=== PATIENT | male | born 1995 | race Caucasian/White ===

== ENCOUNTER 2017-03-23 08:21 | Observation (INO) ==
[2017-03-23] MEDS ORDERED: NS 500 ML IV ONE ×3 (09:03→14:00)
[2017-03-23] MEDS ORDERED: MAGNESIUM SULFATE 2 GM/S.W.I. 2 GM/50 ML IVPB IV ONE ×2 (09:03→14:00)
[2017-03-23] MEDS ORDERED: ZOFRAN IV PRN (09:05)
[2017-03-23] MEDS ORDERED: REGLAN IV PRN (09:05)
[2017-03-23] MEDS ORDERED: CYANOCOBALAMIN IM ONE ×2 (09:06→13:30)
[2017-03-23 12:35] LABS: MANUAL DIFF NEEDED? NO
[2017-03-23 12:39] LABS: BASO% 0.3 % (0.0-0.8); EOS# 0.09 X1000 (0.0-0.7); EOS% 1.6 % (0.0-10.0); HEMATOCRIT 42.3 % (42.0-52.0); HEMOGLOBIN 14.6 g/dL (14.0-18.0); MCH 29.3 PG (27-31); MCHC 34.5 g/dL (33-37); MCV 84.9 FL (81-99); MONO% 10.4 % (1.7-9.3); MPV 10.5 FL (7.4-10.4); NEUT% 49.7 % (42.2-75.2); PLT 266 X1000 (130-400); RBC 4.98 XMIL (4.7-6.1)
[2017-03-23] MEDS: PROTONIX IV SCH ×2 (13:20→22:32)
[2017-03-23] MEDS: SODIUM CHLORIDE 0.9% INJ SCH ×2 (13:20→22:33)
[2017-03-23 13:21] LABS: AGAP 11; ALBUMIN 4.5 g/dL (3.5-5.0); ALKALINE PHOSPHATASE 54 U/L (32-122); BUN 13 mg/dL (8-22); CALCIUM 9.8 mg/dL (8.8-10.2); CHLORIDE 100 mmol/L (98-107); COSMO 271; GOT 25 U/L (10-34); GPT 40 U/L (10-44); MAGNESIUM 1.9 mg/dL (1.5-2.7); POTASSIUM 4.1 mmol/L (3.5-5.1); SODIUM 136 mmol/L (136-145); TCO2 26 mmol/L (25-35); TOTAL PROTEIN 7.5 g/dL (6.3-8.3)
[2017-03-23] MEDS: NS 1,000 ML IV SCH ×2 (13:21→22:33)
--- NOTE | 2017-03-23 17:55 | HISTORY AND PHYSICAL ---
PRIMARY CARE PHYSICIAN: Ethan Watters MD. CHIEF COMPLAINT: Dehydration, poor p.o. intake, POT syndrome. HISTORY OF PRESENT ILLNESS: Mr. Ferrell is a 22-year-old, male with known POT syndrome and orthostatic hypotension. Currently under my care for mitochondrial resuscitation status post use of Xifaxan to increase nutritional assimilation. The patient called our office, noted to be acutely dehydrated. Has had IV fluids at Dr. Stuart's office, but we decided to admit overnight for IV fluid resuscitation and further evaluation of this chronic debilitating syndrome. REVIEW OF SYSTEMS: Twelve point review of systems pertinent for items mentioned in HPI. Patient was profusely nauseous with emesis, poor p.o. intake and lethargic. Describes no chest pain, no cough, no dysuria, no diarrhea. No blood in urine or stool. MEDICATIONS: The patient is under a mitochondrial resuscitation protocol, status post Xifaxan. Please see the updated list for those medications. The patient also takes Coreg 3.125 mg p.o. daily. Restoril 7.5 mg p.o. nightly. Patient using Phenergan and Reglan p.r.n. PHYSICAL EXAMINATION: VITAL SIGNS: Temperature 98.4, pulse 79, respirations 20, blood pressure 137/56, O2 saturation 99% on room air. Patient's current weight 191.16 pounds. GENERAL: On physical exam, a disorganized, male, mild to moderate distress with overt pallor. HEENT: Shows pupils equal, round, reactive to light and accommodation. Extraocular movements are intact. OP is clear, erythematous. Nares are patent. No drainage noted. NECK: Supple. No thyromegaly. No JVD noted. CHEST: Clear to auscultation anteriorly with no rhonchi, no wheeze, no heave noted. CV: Regular rate. No murmurs, gallops or rubs noted. ABDOMEN: Soft, nontender, nondistended. Bowel sounds are scant. EXTREMITIES: No cyanosis, no clubbing. No edema. SKIN: Patient's skin can be described as pasty with poor color. Poor turgor. NEUROLOGICAL: Cranial nerves 2-12 are grossly intact. LABS: The patient's WBC is 5.79 with an hemoglobin and hematocrit of 14 and 42 respectively. MCV 84.9, platelet count of 266, neutrophils 49.7. Chemistry shows sodium 136, anion gap of 11 with a BUN of 13, creatinine 0.8. AST, ALT within normal limits. 25 to 40. Magnesium 1.9. Alkaline phosphatase of 54, albumin 4.5, vitamin B12 of 814. Reports patient had extremity venous study with results pending. PROBLEM LIST: 1. Postural orthostatic tachycardia syndrome. 2. Orthostatic hypertension. 3. Dehydration, mild to moderate. 4. Intractable nausea, vomiting. 5. Poor exercise tolerance. 6. Chronic cannabis use with cannabis dependence. PLAN: The patient will be admitted for IV fluid resuscitation along with the increase in magnesium and high dose vitamin supplementation in an effort to remediate his current situation of postural orthostatic tachycardia syndrome with acute exacerbation. The patient will have some labs drawn to further delineate the root cause of this condition and we will follow regarding possible alternative approaches during this admission. The patient will have a lower extremity venous Doppler to evaluate the lower extremity and make sure there are no issues. follow daily. Likely a 2 day stay. Any questions or concerns will be directed to myself. cc: Ethan Watters MD
[2017-03-23] MEDS ORDERED: RESTORIL PO SCH (21:00)
[2017-03-23] MEDS ORDERED: COREG PO SCH (21:00)
[2017-03-24 06:01] LABS: MANUAL DIFF NEEDED? NO
[2017-03-24 06:05] LABS: BASO% 0.5 % (0.0-0.8); EOS# 0.16 X1000 (0.0-0.7); EOS% 2.6 % (0.0-10.0); HEMOGLOBIN 13.5 g/dL (14.0-18.0); IMM GRAN# 0.01 X1000 (0.0-0.04); IMM GRAN% 0.2 % (0.0-0.5); LYMPH# 2.43 X1000 (1.2-3.4); LYMPH% 39.6 % (20.5-51.1); MCHC 33.8 g/dL (33-37); MONO# 0.77 X1000 (0.11-0.59); MONO% 12.5 % (1.7-9.3); MPV 11.1 FL (7.4-10.4); NEUT% 44.6 % (42.2-75.2); PLT 239 X1000 (130-400); RBC 4.65 XMIL (4.7-6.1)
[2017-03-24 06:46] LABS: AGAP 10; ALKALINE PHOSPHATASE 48 U/L (32-122); AMYLASE 59 U/L (20-200); BUN 12 mg/dL (8-22); CALCIUM 9.2 mg/dL (8.8-10.2); CHLORIDE 105 mmol/L (98-107); COSMO 277; GOT 21 U/L (10-34); GPT 31 U/L (10-44); LIPASE 24 U/L (13-60); POTASSIUM 4.3 mmol/L (3.5-5.1); SODIUM 139 mmol/L (136-145); TCO2 25 mmol/L (25-35); TOTAL PROTEIN 6.6 g/dL (6.3-8.3)
--- NOTE | 2017-03-24 07:10 | Extremity Venous Study ---
PROCEDURE NAME: Venous U/S Bilateral Legs - 03/23/2017 BILATERAL LOWER EXTREMITY VENOUS DOPPLER ULTRASOUND: FINDINGS: RIGHT: There is good flow and compressibility in the veins of the right lower extremity. No thrombus. Normal augmentation. LEFT: There is good flow and compressibility in the veins of the left lower extremity. No thrombus. Normal augmentation. IMPRESSION: No evidence of deep venous thrombosis within either lower extremity.
--- NOTE | 2017-03-24 07:27 | PROGRESS NOTE ---
DATE: 03/24/2017 SUBJECTIVE: Overnight, the patient responded well, did take the sleep aid with excellent effect approximately 2200. He states that he is feeling much better status post IV fluid resuscitation. OBJECTIVE: Vital signs showed temperature of 97.7 degrees, pulse of 55; down from over 100. Blood pressure 142/68. O2 saturation 100% on room air. PHYSICAL EXAMINATION: Improved color. Improved overall general appearance. CV is regular rate. No murmurs, gallops, or rubs. Skin: Warm with improved perfusion and turgor. Lower extremities: No cyanosis, clubbing, or edema noted. intact. ASSESSMENT AND PLAN: This is a 22-year-old with 1. Orthostatic hypotension, resolving, with the root cause of the etiology unknown. 2. Postural orthostatic tachycardia syndrome. 3. Hypomagnesemia. 4. Intractable nausea, vomiting. 5. Failure to thrive secondary to #1. 6. Extreme fatigue. The patient is responding well to the treatment. We will continue today with further evaluation of some of the labs along with an IV of vitamin C at high dose with patient's continuing medication regimen. Restoril will be made available and nausea medicine available as well. The patient has been held from any cannabinoids secondary to the question of cyclic vomiting syndrome. cc: Ethan Watters MD
[2017-03-24] MEDS: SODIUM CHLORIDE 0.9% INJ SCH (10:08)
[2017-03-24] MEDS: PROTONIX IV SCH ×2 (10:08→20:29)
[2017-03-24] MEDS ORDERED: NS IV ONE (10:30)
[2017-03-24] MEDS ORDERED: VITAMIN C IV ONE (10:30)
[2017-03-24] MEDS ORDERED: RESTORIL PO SCH (12:51)
[2017-03-25 03:46] VITALS: BP 117/47
[2017-03-25 06:19] LABS: MANUAL DIFF NEEDED? NO
[2017-03-25 06:20] LABS: BASO% 0.3 % (0.0-0.8); EOS# 0.21 X1000 (0.0-0.7); EOS% 2.3 % (0.0-10.0); HEMATOCRIT 40.8 % (42.0-52.0); IMM GRAN# 0.01 X1000 (0.0-0.04); IMM GRAN% 0.1 % (0.0-0.5); LYMPH% 33.2 % (20.5-51.1); MCH 29.2 PG (27-31); MCHC 34.3 g/dL (33-37); MPV 11.3 FL (7.4-10.4); NEUT% 54.1 % (42.2-75.2); PLT 256 X1000 (130-400)
[2017-03-25 06:46] LABS: AGAP 10; ALBUMIN 3.9 g/dL (3.5-5.0); ALKALINE PHOSPHATASE 50 U/L (32-122); BUN 9 mg/dL (8-22); CALCIUM 9.5 mg/dL (8.8-10.2); CHLORIDE 106 mmol/L (98-107); COSMO 281; GOT 21 U/L (10-34); GPT 30 U/L (10-44); MAGNESIUM 1.8 mg/dL (1.5-2.7); POTASSIUM 3.9 mmol/L (3.5-5.1); SODIUM 142 mmol/L (136-145); TCO2 26 mmol/L (25-35); TOTAL PROTEIN 6.6 g/dL (6.3-8.3)
[2017-03-25] MEDS ORDERED: MAGNESIUM GLUCONATE PO ONE (07:44)
[2017-03-25] MEDS: SODIUM CHLORIDE 0.9% INJ SCH (09:32)
[2017-03-25] MEDS: PROTONIX IV SCH (09:32)
--- NOTE | 2017-03-26 15:07 | DISCHARGE SUMMARY ---
ADMISSION DATE: 03/23/2017 DISCHARGE DATE: 03/25/2017 PRIMARY CARE PHYSICIAN: Dr. Ethan Watters. CHIEF COMPLAINT ON ADMISSION: Intractable nausea, vomiting, dehydration and poor p.o. intake. HISTORY OF PRESENT ILLNESS: Mr Ferrell is a 22-year-old, male with known postural orthostatic tachycardia syndrome currently under my care undergoing myocardial resuscitation status post use of Xifaxan . He was admitted for acute dehydration and POTS flare. CONSULTATIONS: There were no consults during this course. PROBLEM LIST ON DISCHARGE: 1. Postural orthostatic tachycardia syndrome. 2. Orthostatic hypotension. 3. Dehydration mild to moderate. 4. Intractable nausea, vomiting, with question of cyclic vomiting syndrome. 5. Poor exercise tolerance. 6. Chronic cannabis use with cannabis dependence. LABS AND IMAGIN. The patient had an extremity venous study 03/23/2017 on lower extremities to rule out any additional causes. Chest showed normal flow. No DVT's noted. LABORATORY: A normal WBC with an hemoglobin and hematocrit of 14 and 40 respectively, platelets of 250,000, monocytosis otherwise within normal limits. Chemistry shows a borderline low magnesium that did not respond to supplementation. Magnesium on discharge 1.8. AST and ALT of 21 and 30 respectively. Albumin of 3.9 with an amylase of 59. Lipase of 24, vitamin B12 of 814. TSH 1.8 with IgG and IgE levels within normal limits. Throughout the course of our treatment, vital signs maintained within normal limits noted upon full fluid resuscitation. Patient's tachycardia has completely resolved. Blood pressures ranged from about 117-149/48-82. O2 saturation between 98 and 100%. HOSPITAL COURSE: Patient admitted to general medical floor treated with high-volume IV resuscitation along with continuation of Mylicon resuscitation protocol of which I had set forward with him. The patient was given IV Zofran and Reglan p.r.n. and a night time sleep aid along with an IV drip of vitamin C at high dose and effect was monitored. The patient responded with having no acute worsening of the flares and at the time of discharge he is above current baseline for standard daily p.o. intake. We will continue to follow the patient as outpatient for this chronic condition. As of now the patient is stable. We can discharge the patient home in stable condition. He will follow up in my office in one week to continue the mitochondrial restriction program. The patient has been advised to cessate any cannabinoids as long as tolerated with maximum 21 days to affect the cyclic vomiting syndrome. cc: Ethan Watters MD
== END 2017-03-25 11:15 | disposition home or self-care (01) ==
LOC: P.DIRADM 08:21 → INTOOBSV 08:21 → P.MEDSURG 11:03
PROVIDERS: ADMIT Family Medicine; ATTEND Family Medicine